=== PATIENT | female | born 1950 | race Two or more races ===

== ENCOUNTER 2023-02-19 15:40 | Emergency (ER) | payer MEDICARE, OTHER ==
[~2023-02-19] VITALS: Ht 160 cm; Wt 68.2 kg
[~2023-02-19 15:40] MED LIST: DSS100 PO; GLIP5TAB12 PO; LEVO50 PO; LISI-892 PO; METF-1211 PO; SIMV-260 PO
[2023-02-19] MEDS ORDERED: ASPI-1444 PO (15:53)
[2023-02-19] MEDS ORDERED: SITA100 PO (15:53)
[2023-02-19] MEDS ORDERED: ATOR40TA71 PO (15:53)
[2023-02-19] MEDS ORDERED: LEVO50TA11 PO (15:53)
[2023-02-19] MEDS ORDERED: METF-446 PO (15:53)
[2023-02-19] MEDS ORDERED: LISI5TAB21 PO (15:53)
[2023-02-19] MEDS ORDERED: DULA0.75 SQ (15:53)
[2023-02-19] MEDS ORDERED: DICL100G60 TP (19:13)
[2023-02-19] MEDS ORDERED: ACET-3385 PO (19:14)
[2023-02-19 19:20] VITALS: BP 121/71; PULSE 74; RESP 16; TEMP 97.3
== END 2023-02-19 19:41 | disposition home or self-care (01) ==
LOC: EMS 16:47
DX: M19.012 Primary osteoarthritis, left shoulder (principal); M75.32 Calcific tendinitis of left shoulder; E11.9 Type 2 diabetes mellitus without complications; E78.00 Pure hypercholesterolemia, unspecified; E03.9 Hypothyroidism, unspecified; Z88.8 Allergy status to other drugs, medicaments and biological substances
CPT/HCPCS: 82962; 99283